=== PATIENT | female | born 1990 | race Caucasian/White ===

== ENCOUNTER 2025-01-14 17:54 | Emergency (ER) | payer MEDICAID, SELFPAY ==
[2025-01-14 17:56] VITALS: BP 138/85; PULSE 84; RESP 14; TEMP 37.1; O2SAT 98
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
[2025-01-14 18:36] VITALS: BP 138/85; PULSE 84; RESP 14; TEMP 37.1; O2SAT 98
[2025-01-14 18:39] LABS: Abs Immature Grans 0.02 10^3/uL (0.0-0.06); HCT 39.6 % (36.0-46.0); HGB 12.8 g/dL (11.2-15.7); Immature Grans % 0.3 %; MCH 27.8 pg (27.0-33.0); MCHC 32.3 % (32.0-36.0); MCV 86 fL (80-95); MPV 8.9 fL (8.0-11.0); Platelet Count 360 10^3/uL (130-400); RBC 4.61 10^6/uL (3.93-5.22); RDW 14.4 % (11.7-14.6); RDW-SD 45.3 fL; WBC 7.60 10^3/uL (4.4-10.8)
[2025-01-14 18:40] LABS: Glucose Negative (Negative)
[2025-01-14 18:52] LABS: RBC 0-2 HPF (0-2)
== END 2025-01-14 18:45 | disposition left against medical advice (07) ==
LOC: ER 19:07
PROVIDERS: Emergency Provider Emergency Medicine
DX: R22.41 Localized swelling, mass and lump, right lower limb (principal); R22.42 Localized swelling, mass and lump, left lower limb
CPT/HCPCS: 99283 ×2; 81025; 80053; 81003; 81015; 83735; 83880; 84443; 85025